=== PATIENT | female | born 1960 | race Caucasian/White ===

== ENCOUNTER → 2019-09-20 | Outpatient (CLI) | payer MEDICARE ==
--- NOTE | 2019-09-21 16:48 | MAM ---
EXAM DESCRIPTION: 3D Screening BILATERAL : Digital Mammography. CLINICAL HISTORY: 59 years Female screening . No complaints. No personal history of breast cancer. Remote family history of breast cancer. Menarche age unknown. Childbirth age 20. Menopause age unknown. No HRT. Lifetime risk of developing breast cancer (Tyrer-Cuzick model)(%): 7.4. COMPARISON: Baseline study at this facility.. No prior reports available. TECHNIQUE: Bilateral CC and MLO projection full-field images, digital tomosynthesis mammographic technique. Bilateral digital 2-D full-field MLO images. CAD available for 2-D images. FINDINGS: The breast parenchymal density pattern is: Scattered areas of fibroglandular density. No skin thickening or nipple retraction. Partially circumscribed mass density approximately 3 cm posterior to the nipple and also lateral at the 8:30 to 9:00 position in the anterior third. Not associated with microcalcifications. Bilateral solitary microcalcifications. Left axillary lymph node. Bilateral vascular calcifications. No new focal, stellate mass or density, focal asymmetry , and no suspicious microcalcifications left breast. IMPRESSION: BI-RADS CATEGORY: 0 - INCOMPLETE- Need additional imaging evaluation. FOLLOW-UP: Recall for additional imaging: LM projection full-field images right breast 2-D and tomosynthesis technique. Directed right breast ultrasound.. Written communication concerning the IMPRESSION and Follow-up, will be mailed to the patient and referring health care provider. Electronically signed by: Jordon Mi MD 09/21/2019 4:47 PM CDT
== END ==
LOC: MAMMO 12:21
PROVIDERS: ATTEND Family Medicine
DX: Z12.31 Encounter for screening mammogram for malignant neoplasm of breast (principal)

== ENCOUNTER 2019-11-13 22:22 | Emergency (ER) | payer MEDICARE ==
[2019-11-13] MEDS ORDERED: SODIUM CHLORIDE 0.9% (FLUSH) 10 ML SYG IV PRN (22:24)
[2019-11-13] MEDS ORDERED: EPINEPHrine INJ 0.1 MG/ML 10 ML SYG IV ONE ×6 (22:28→23:30)
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
[2019-11-13] MEDS ORDERED: SODIUM CHLORIDE 0.9% 1000ML 1,000 ML IVS ONE (22:45)
[2019-11-13] MEDS ORDERED: DEXTROSE 5% 250ML 250 ML ONE (22:49)
[2019-11-13] MEDS ORDERED: EPINEPHrine HCL AMP 1 MG/ML AMP IVPB ONE (22:55)
[2019-11-13] MEDS ORDERED: EPINEPHrine HCL AMP 1 MG/ML AMP ONE (22:55)
[2019-11-13] MEDS ORDERED: SODIUM CHLORIDE 0.9% 250ML 250 ML IVS ONE (22:55)
--- NOTE | 2019-11-13 23:01 | RAD ---
EXAM DESCRIPTION: Chest,1 View CLINICAL HISTORY: 59 years Female, cardiac arrest COMPARISON: 04/27/2010 TECHNIQUE: Single AP chest radiograph. FINDINGS: Endotracheal tube terminates approximately 4.7 cm above the osbaldo. Cardiomegaly. Hazy bilateral perihilar lung opacities consistent with edema. Low lung volumes. No pneumothorax or pleural effusion. IMPRESSION: 1. Endotracheal tube terminates approximately 4.7 cm above the osbaldo. 2. Pulmonary edema. Electronically signed by: Venkata Nunez MD 11/13/2019 10:59 PM CDT
[2019-11-13] MEDS ORDERED: ATROPINE 1 MG/10 ML SYG IV ONE (23:37)
[2019-11-14 00:58] VITALS: TEMP 96.1
[2019-11-14 01:39] VITALS: BP 154/92; O2SAT 100
== END 2019-11-13 23:30 | disposition short-term general hospital (02) ==
LOC: ER 22:22
DX: I46.9 Cardiac arrest, cause unspecified (principal); I25.110 Atherosclerotic heart disease of native coronary artery with unstable angina pectoris
CPT/HCPCS: 71045; 80048; 82550; 82553; 83605; 83880; 84484; 85025; 85610; 85730; 92950; 93005; 94002; 94770; J7030; J7060